=== PATIENT | female | born 1985 | race African-American/Black ===

== ENCOUNTER → 2019-09-05 | Outpatient (CLI) | payer BC, OTHER ==
[2018-01-04 15:00] VITALS: BP 129/78
[~2019-09-05] MED LIST: DOCU-109 PO; METH500T7 PO; OXYC5TAB4 PO
--- NOTE | 2019-09-05 16:38 | RAD ---
Ultrasound greater than 14 weeks HISTORY: Supervision of Sonographic examination of the was performed and multiple static images were obtained. There is a single live intrauterine . The heartbeat is confirmed at 147 beats per minute. There is a posterior placenta. The amniotic fluid volume appears normal and the amniotic fluid index measures 13.2 cm. The spine, stomach, heart, cord insertion, bladder appear normal. The brain is not well seen due to positioning. Maternal cervix is not well seen due to the cephalic position. The LMP of March 29 2019 corresponds with 22 week 6 day gestational age and estimated date of confinement of 01/03/2020. Estimated size by ultrasound is concordant. The measurements are as follows: BPD 5.5 cm 20 weeks 5 days Head circumference 20.5 cm 20 weeks 5 days Abdominal circumference 17.9 cm 20 weeks 5 days Femur length 4.0 cm which 3 weeks 0 days Estimated weight 5 39 g +/- 80 grams Estimated weight percentile 39 percent. IMPRESSION: 1. Single live intrauterine has appropriate size by ultrasound. 2. No abnormality has been identified however the brain heart and face are not well seen due to positioning. A short-term follow-up ultrasound may be helpful to complete the survey. Electronically signed by: Logan Machado III, MD (09/05/2019 4:35 PM) [id number]
== END | disposition home or self-care (01) ==
LOC: US 12:30
PROVIDERS: ATTEND Obstetrics & Gynecology
DX: O26.842 Uterine size-date discrepancy, second trimester (principal); Z3A.20 20 weeks gestation of pregnancy
CPT/HCPCS: 76805